=== PATIENT | male | born 1960 | race Caucasian/White ===

== ENCOUNTER 2023-03-19 09:10 | Day surgery (SDC) | payer BC ==
[2023-03-19] MEDS: NA CHLORIDE 0.9% 1,000 ML ONE ×3 (09:48→11:05)
[2023-03-19] MEDS ORDERED: LIDOCAINE 1% MPF 5 ML VIAL ONE (10:17)
[2023-03-19] MEDS ORDERED: propofoL 200 MG/20 ML VIAL IV ONE (10:17)
[2023-03-19 12:07] VITALS: TEMP 98.4
[2023-03-19 12:08] VITALS: O2SAT 98
[2023-03-19 13:16] VITALS: BP 107/70
--- NOTE | 2023-03-19 17:00 | EKG ---
Test Date: 2023-03-18 Test Time: 15:15:25 Liability Analyst: ANGELES MEASUREMENT RESULTS: Intervals: Rate: 55 RI: 138 QRSD: 98 QT: 464 QTc: 443 [place]: P: 17 RI: 138 QRS: -30 T: 19 INTERPRETIVE STATEMENTS: Sinus bradycardia Left axis deviation Abnormal ECG No previous ECG available for comparison Electronically Signed On 03-19-23 16:56:41 CDT by Cash Jha
== END 2023-03-19 12:23 | disposition home or self-care (01) ==
LOC: OR 09:10
PROVIDERS: ATTEND Surgery
PROC: 0DJD8ZZ Inspection of Lower Intestinal Tract, Via Natural or Artificial Opening Endoscopic (ICD-10-PCS; principal; 2023-03-19 10:30)
DX: Z12.11 Encounter for screening for malignant neoplasm of colon (principal); K57.30 Diverticulosis of large intestine without perforation or abscess without bleeding; K64.8 Other hemorrhoids
CPT/HCPCS: 36415; 80048; 82947; 93005; J2001; J2704; J7030